=== PATIENT | female | born 1985 | race Caucasian/White ===

== ENCOUNTER 2020-01-29 19:15 | Emergency (ER) | payer OTHER, MEDICAID, SELFPAY ==
[2020-01-29 19:20] VITALS: BP 115/58; PULSE 92; RESP 14; TEMP 37.2; O2SAT 99; BMI 24.2
--- NOTE | 2020-01-29 19:57 | ED.WOUNDLAC ---
HPI - Wound/Laceration <PETER Cabezas - Last Filed: 01/29/20 21:01> General Chief Complaint: Wound/Laceration Stated Complaint: laceration to wrist, accidental Time Seen by Provider: 01/29/20 19:22 Source: patient Mode of arrival: Ambulatory Limitations: no limitations History of Present Illness HPI narrative: 34yo female presents to the ED for a laceration to her right wrist. She states she was painting, she went to use a screwdriver to open a piece of painting supply, the screwdriver slipped and she cut her wrist on the metal casing of the other eating supplies. She states this happened a few hours ago, unsure last Tdap. She denies any fevers, chills, nausea, vomiting, diarrhea, difficulty moving her wrist, other injuries, or any other concerns. Patient reports allergy to Toradol, states that she can take ibuprofen. Related Data Previous Rx's Medication Instructions Recorded ibuprofen 800 mg PO Q8H PRN #14 tab 01/29/20 Allergies Allergy/AdvReac Type Severity Reaction Status Date / Time ketorolac [From Toradol] Allergy Verified 01/29/20 19:25 Review of Systems <PETER Cabezas - Last Filed: 01/29/20 21:01> Review of Systems Narrative: REVIEW OF SYSTEMS: GENERAL: Denies fever or chills. HENT: Denies head trauma. EYE: Denies double vision or vision loss. CARDIOVASCULAR: Denies syncope. MUSCULOSKELETAL: Denies weakness, or deformities. INTEGUMENTARY: Complains of right wrist laceration, see HPI. NEURO: Denies numbness or tingling. Patient History <PETER Cabezas - Last Filed: 01/29/20 21:01> Medical History No significant medical problems (Acute) Social History Smoking Status: Current every day smoker Smoking Status: Current every day smoker alcohol intake frequency: holidays/special occasions only Substance Use Type: does not use Exam <PETER Cabezas - Last Filed: 01/29/20 21:01> Initial Vital Signs Initial Vital Signs: Vital Signs Temperature 98.9 F 01/29/20 19:20 Pulse Rate 92 H 01/29/20 19:20 Respiratory Rate 14 01/29/20 19:20 Blood Pressure 115/58 L 01/29/20 19:20 Pulse Oximetry 99 01/29/20 19:20 PHYSICAL EXAMINATION: GENERAL: Well groomed, alert, and cooperative. Answers questions promptly and appropriately. Vital signs noted. HENT: Normocephalic, atraumatic. RESPIRATORY: Normal respiratory rate, trachea midline, airway patent. No stridor, nasal flaring or accessory muscle use. MUSCULOSKELETAL: Full range of motion of right wrist against resistance. Normal gait and coordination. Equal tone and mass bilaterally. EXTREMITIES: CMS intact. Moves all extremities. SKIN: Warm, dry, soft, appropriate color for ethnicity. A 4 cm laceration noted to right wrist, subcu tissue visualized, tendon visualize, intact, smooth glide visualized. Bleeding controlled with pressure. Sutures applied after irrigation with normal saline. See procedure note. NEURO: Alert and Oriented X 3. Good coordination. PSYCH: Appropriate affect and mood. <Bright Coker DO - Last Filed: 01/30/20 00:49> Initial Vital Signs Initial Vital Signs: Vital Signs Temperature 98.9 F 01/29/20 19:20 Pulse Rate 92 H 01/29/20 19:20 Respiratory Rate 14 01/29/20 19:20 Blood Pressure 115/58 L 01/29/20 19:20 Pulse Oximetry 99 01/29/20 19:20 Procedures <PETER Cabezas - Last Filed: 01/29/20 21:01> Laceration Repair Laceration 1: Site: upper extremity Size (cm): 4 Description: linear Depth: simple, single layer Local Anesthetic: lidocaine 1% and with epi Amount of anesthesia used (mL): 9 Pre-repair: wound explored and irrigated extensively Skin layer closed with: nylon Size (cm): 4-0 Number of sutures: 8 Technique: simple, interrupted Course <PETER Cabezas - Last Filed: 01/29/20 21:01> Course Course Narrative: Wound irrigated extensively, Tylenol and ibuprofen given for pain. Orders Ordered: Discontinued Medications Acetaminophen (Tylenol) 975 mg PO NOW ONE Stop: 01/29/20 19:51 Last Admin: 01/29/20 20:26 Dose: 975 mg Documented by: MMERKEL Bacitracin (Bacitracin) 1 applic TOP NOW ONE Stop: 01/29/20 20:53 Last Admin: 01/29/20 21:03 Dose: 1 applic Documented by: LELA Diphtheria/Tetanus/Acell Pertussis (Adacel) 0.5 ml IM .ONCE ONE Stop: 01/29/20 21:09 Last Admin: 01/29/20 21:11 Dose: 0.5 ml Documented by: LELA Ibuprofen (Advil) 800 mg PO NOW ONE Stop: 01/29/20 19:51 Last Admin: 01/29/20 20:26 Dose: 800 mg Documented by: LELA Lidocaine/Epinephrine (Xylocaine 1% W/Epi) 4 ml INJ INTRA-OP ONE Stop: 01/29/20 19:52 Last Admin: 01/29/20 20:27 Dose: 4 ml Documented by: LELA Vital Signs Vital signs: Vital Signs - 8 hr 01/29/20 19:20 01/29/20 21:02 Temperature 98.9 F Pulse Rate 92 H 83 Respiratory Rate 14 Blood Pressure 115/58 L 99/57 L Pulse Oximetry 99 98 <Bright Coker, DO - Last Filed: 01/30/20 00:49> Orders Ordered: Discontinued Medications Acetaminophen (Tylenol) 975 mg PO NOW ONE Stop: 01/29/20 19:51 Last Admin: 01/29/20 20:26 Dose: 975 mg Documented by: LELA Bacitracin (Bacitracin) 1 applic TOP NOW ONE Stop: 01/29/20 20:53 Last Admin: 01/29/20 21:03 Dose: 1 applic Documented by: LELA Diphtheria/Tetanus/Acell Pertussis (Adacel) 0.5 ml IM .ONCE ONE Stop: 01/29/20 21:09 Last Admin: 01/29/20 21:11 Dose: 0.5 ml Documented by: LELA Ibuprofen (Advil) 800 mg PO NOW ONE Stop: 01/29/20 19:51 Last Admin: 01/29/20 20:26 Dose: 800 mg Documented by: LELA Lidocaine/Epinephrine (Xylocaine 1% W/Epi) 4 ml INJ INTRA-OP ONE Stop: 01/29/20 19:52 Last Admin: 01/29/20 20:27 Dose: 4 ml Documented by: LELA Vital Signs Vital signs: Vital Signs - 8 hr 01/29/20 19:20 01/29/20 21:02 Temperature 98.9 F Pulse Rate 92 H 83 Respiratory Rate 14 Blood Pressure 115/58 L 99/57 L Pulse Oximetry 99 98 [facility] - Wound/Laceration <Teressa PachecoPETER - Last Filed: 01/29/20 21:01> Medical Records Attestation: I reviewed the patient's medical records. Lab Data Attestation: I reviewed the patient's lab results. MDM Narrative Medical decision making narrative: Simple laceration repair, no concern for infection or tendon involvement due to full range of motion of wrist, and visualized intact tendon movement. Patient was counseled extensively about suture removal and to watch for signs of infection. Less concern for foreign body given lack of any missing pieces of the tin box as she cut herself on. Return precautions given for new or worsening symptoms. Patient agreed to plan of care verbalized understanding. Discharge Plan Departure Patient Disposition: Home Clinical Impression: Laceration Discharge Date/Time: 01/29/20 21:05 Instructions: DI for Laceration Repair Activity Restrictions/Additional Instructions: Thank you for entrusting me with your care today. As discussed, 8 sutures were applied, these can be removed in 10-14 days. Leave the bandage in place for the next 24 hours, after that you may remove the bandage in wash the area gently with soap and water. Apply bacitracin to the area 1 to 2 times a day. No foreign bodies were found in your wound today. While there is low-risk for infection at this time, retained foreign bodies and infection are always possible with any cut or break in the skin. Please monitor the wound closely and be re-evaluated immediately if you develop any signs of infection such as pus, increasing redness, increasing pain, fevers, or any other concerns. Prescriptions: New ibuprofen 800 mg tablet 800 mg PO Q8H PRN (Reason: pain) Qty: 14 RF: 0 <Bright Coker DO - Last Filed: 01/30/20 00:49> Cosign ED Attending Cosignature Attestation: I was immediately available in the department for consultation. This documentation has been reviewed and I agree with assessment and plan. Supervised by Bright Coker DO
[2020-01-29] MEDS: IBUPROFEN 400 MG TABLET 800 MG PO (20:26)
[2020-01-29] MEDS: ACETAMINOPHEN 325 MG TABLET 975 MG PO (20:26)
[2020-01-29] MEDS: LIDOCAINE 1% W/EPI 4 ML INJ (20:27)
[2020-01-29 21:02] VITALS: BP 99/57; PULSE 83; O2SAT 98
[2020-01-29] MEDS: BACITRACIN OINT 0.9 GM PCKT 1 APPLIC TOP (21:03)
[2020-01-29] MEDS: TET,DIPH,PERTUSS(ACELL),VAC/PF 0.5 ML SYRINGE IM (21:11)
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
== END 2020-01-29 21:05 | disposition home or self-care (01) ==
PROVIDERS: Emergency Provider Nurse Practitioner
DX: S61.511A Laceration without foreign body of right wrist, initial encounter (principal); W45.8XXA Other foreign body or object entering through skin, initial encounter; Z23 Encounter for immunization
CPT/HCPCS: 12002; 90471; 99283; 90715

== ENCOUNTER 2023-08-04 15:00 | Emergency (ER) | payer SELFPAY ==
[2023-08-04 15:06] VITALS: BP 99/56; PULSE 104; RESP 18; TEMP 36.9; O2SAT 100; BMI 27.4
[2023-08-04] MEDS: ACETAMINOPHEN 325 MG TABLET 975 MG PO (15:25)
[2023-08-04] MEDS: ONDANSETRON 4 MG/2 ML INJ IV (15:26)
--- NOTE | 2023-08-04 15:50 | DI.CT.S_ITS ---
PROCEDURE: CT KIDNEY URETER BLADDER (KUB) INDICATIONS: R/O Kidney Stones TECHNIQUE: Axial sections were acquired from the lung bases to the pubic symphysis. Coronal and sagittal reformats were performed. For radiation dose reduction, the following was used: automated exposure control, adjustment of mA and/or kV according to patient size. COMPARISON: None. FINDINGS: Image quality: Diagnostic. Lower Chest: No significant findings. URINARY: Right Kidney: No stones or hydronephrosis. Right Ureter: No hydroureter. Left Kidney: Punctate left renal calculus. There is minimal appearance of prominence of the left renal collecting system. Left Ureter: No hydroureter. Bladder: Normal wall thickness. No stones. ABDOMEN: Liver: No contour-deforming solid mass. Gallbladder: No radiopaque gallstones or wall thickening. Biliary ducts: No biliary dilation. Pancreas: No ductal dilation. Spleen: Size is within normal limits. Adrenal Glands: No adrenal nodules. Stomach and Bowel: Normal colonic caliber, without significant wall thickening. Peritoneum: No abnormal intraperitoneal fluid. No free air. Ventral Wall: No hernia. Abdominal Nodes: No enlarged retroperitoneal or mesenteric lymph nodes. Vessels: Aorta and inferior vena cava are normal in size. PELVIS: Pelvic Organs: Unremarkable. Pelvic Nodes: Unremarkable. Miscellaneous: No inguinal hernias are seen. Bones: Unremarkable. IMPRESSION: Minimal prominence of the left renal collecting system. This could represent a recently passed stone. Is overall nonspecific. Punctate non-obstructing left renal calculus. Mild to moderate colonic stool without obstruction. Dictated by: Jadyn Pittman M.D. on 08/04/2023 at 16:28 Approved by: Jadyn Pittman M.D. on 08/04/2023 at 16:29
[2023-08-04 16:19] LABS: Bacteria Urine Few (2-10); RBC Urine 0-1/HPF (0-5/HPF); Urine Volume 10mL (spun); WBC Urine 5-10/HPF (0-5/HPF)
[2023-08-04 16:20] LABS: Culture Indicated Urine Specimen Cultured; Squamous Epithelial Cell Urine 1-5 /HPF (0-5/HPF)
[2023-08-04 18:15] LABS: Add Manual Diff / Slide Review NO; Basophils Absolute Auto 0 /uL (0-100); Basophils Percent Auto 0.1 % (0-2); Eosinophils Absolute Auto 100 /uL (0-450); Eosinophils Percent Auto 0.5 % (2-4); Hematocrit 39.9 % (36-46); Hemoglobin 13.2 g/dL (12.0-16.0); Lymphocytes Absolute Auto 1100 /uL (1100-4500); Lymphocytes Percent Auto 6.2 % (25-40); Mean Corpuscular HGB Conc 33.2 % (30-36); Mean Corpuscular Volume 93.3 fL (80-100); Monocytes Absolute Auto 1600 /uL (0-900); Monocytes Percent Auto 8.9 % (3-14); Neutrophils Absolute Auto 14900 /uL (1500-7000); Neutrophils Percent Auto 84.3 % (50-75); Platelet Count 263 X10^3/uL (150-400); Red Blood Cell Count 4.28 X10^6/uL (4.0-5.2); Red Cell Distribution Width 13.3 % (11.6-14.8); White Blood Cell Count 17.7 X10^3/uL (4.5-11.0)
[2023-08-04 18:21] LABS: BUN Creatinine Ratio 10.1 (6-22); Blood Urea Nitrogen 8 mg/dL (7-17); Calcium 9.2 mg/dL (8.4-10.2); Carbon Dioxide 26 mmol/L (22-32); Chloride 102 mmol/L (98-107); Estimated Glomerular Filt Rate > 60 mL/min (>60); Glucose 110 mg/dL (70-100); HEMOLYSIS < 15 (0-50); Potassium 3.5 mmol/L (3.4-5.1); Sodium 136 mmol/L (137-145)
[2023-08-04 18:28] VITALS: BP 110/61; PULSE 88; RESP 18; O2SAT 100
--- NOTE | 2023-08-04 18:46 | PC.NURSE ---
Patient in [facility] demanding to know who her doctor is and when she will see him. Informed patient of the wait. Requesting tylenol for pain. I have been back here for over 30min and was told I would get pain meds and no one has given me anything Reassured patient RN would speak to provider about pain meds.
--- NOTE | 2023-08-04 19:02 | ED_ITS ---
HPI - General Adult General Chief complaint: Urogenital-Female Stated complaint: septic kidney/pain increasing T-0 Time Seen by Provider: 08/04/23 18:00 Source: patient Mode of arrival: Ambulatory History of Present Illness HPI narrative: Patient is a 37-year-old female who is here for evaluation of left-sided flank and back pain that began approximately 4 days ago. She states that it does radiate around to the front on the left. Worse with movement. Also states she is having some blood in her urine specifically with wiping. She presented to an outside emergency department this morning. I did have those notes to review. She had a negative test. Labs were relatively unremarkable except for a leukocytosis of 12. Had a urinalysis that was consistent with a urinary tract infection. According to those notes the patient left Against Medical Advice. The provider did send in a prescription for Cipro. She presents to this emergency department with very similar symptoms. Related Data Previous Rx's Medication Instructions Recorded ibuprofen 800 mg tablet 800 mg PO Q8H PRN pain #14 tabs 01/29/20 cephalexin 500 mg capsule 500 mg PO BID 7 days #14 caps 08/04/23 Allergies Allergy/AdvReac Type Severity Reaction Status Date / Time ketorolac [From Toradol] Allergy Verified 01/29/20 19:25 Review of Systems Review of Systems ROS Unobtainable: All systems reviewed & are unremarkable except as noted in HPI and below Patient History Medical History No significant medical problems Social History Smoking Status: Current every day smoker Smoking Status: Current every day smoker tobacco type: cigarettes alcohol intake frequency: holidays/special occasions only Substance Use Type: crack/cocaine and methamphetamine Exam Initial Vital Signs Initial Vital Signs: Vital Signs Temperature 98.4 F 08/04/23 15:06 Pulse Rate 104 H 08/04/23 15:06 Respiratory Rate 18 08/04/23 15:06 Blood Pressure 99/56 L 08/04/23 15:06 Pulse Oximetry 100 08/04/23 15:06 Oxygen Delivery Method Room Air 08/04/23 15:06 Const General: cooperative and No ill appearing HENMT Head: normal to inspection and normocephalic Resp Effort & Inspection: normal respiratory effort Auscultation: clear to auscultation bilaterally Cardio Rate: regular rate Rhythm: regular rhythm GI Inspection: non-distended Back/Spine/Pelvis Back: CVA tenderness left Skin General: no rashes or lesions noted Neuro General: patient alert and patient awake Extrem General: capillary refill normal Course Orders Ordered: Discontinued Medications Acetaminophen (Acetaminophen 325 Mg Tablet) 975 mg PO NOW ONE Stop: 08/04/23 15:19 Last Admin: 08/04/23 15:25 Dose: 975 mg Documented By: ES Cephalexin HCl (Cephalexin 250 Mg Capsule) 500 mg PO NOW ONE Stop: 08/04/23 19:04 Last Admin: 08/04/23 19:11 Dose: 500 mg Documented By: GAURI Ondansetron HCl (Ondansetron 4 Mg Odt) 4 mg SL NOW PRN PRN Reason: Nausea And Vomiting Ondansetron HCl (Ondansetron 4 Mg/2 Ml Inj) 4 mg IV NOW PRN PRN Reason: Nausea And Vomiting Last Admin: 08/04/23 15:26 Dose: 4 mg Documented By: VALERY Vital Signs Vital signs: Vital Signs - 8 hr 08/04/23 18:28 Pulse Rate 88 Respiratory Rate 18 Blood Pressure 110/61 Pulse Oximetry 100 Oxygen Delivery Method Room Air Medical Decision Making Medical Records Medical records reviewed: Yes I reviewed the patient's medical records. Lab Data Lab results reviewed: Yes I reviewed the patient's lab results. 08/04/23 15:30 08/04/23 15:30 Labs: Lab Results 08/04/23 08/04/23 Range/Units 15:30 15:42 WBC 17.7 H (4.5-11.0) X10^3/uL RBC 4.28 (4.0-5.2) X10^6/uL Hgb 13.2 (12.0-16.0) g/dL Hct 39.9 (36-46) % MCV 93.3 (80-100) fL MCH 31.0 (26-34) PG MCHC 33.2 (30-36) % RDW 13.3 (11.6-14.8) % Plt Count 263 (150-400) X10^3/uL Neut % (Auto) 84.3 H (50-75) % Lymph % (Auto) 6.2 L (25-40) % [place] % (Auto) 8.9 (3-14) % Eos % (Auto) 0.5 L (2-4) % Baso % (Auto) 0.1 (0-2) % Neut # (Auto) 43554 H (6723-4500) /uL Lymph # (Auto) 1100 (9844-9799) /uL [place] # (Auto) 1600 H (0-900) /uL Eos # (Auto) 100 (0-450) /uL Baso # (Auto) 0 (0-100) /uL Sodium 136 L (137-145) mmol/L Potassium 3.5 (3.4-5.1) mmol/L Chloride 102 (98-107) mmol/L Carbon Dioxide 26 (22-32) mmol/L BUN 8 (7-17) mg/dL Creatinine 0.79 (0.52-1.04) mg/dL Estimated GFR > 60 (>60) mL/min BUN/Creatinine Ratio 10.1 (6-22) Glucose 110 H (70-100) mg/dL Calcium 9.2 (8.4-10.2) mg/dL Urine RBC 0-1/hpf (0-5/HPF) Urine WBC 5-10/hpf H (0-5/HPF) Ur Squamous Epith Cells 1-5 /hpf (0-5/HPF) Urine Bacteria Few (2-10) H (None) Ur Culture Indicated? Specimen cultured Vol Urine Centrifuged 10ml (spun) Point of Care Testing Test Results Negative Urine Dip Bedside Urine Glucose Negative Bedside Urine Bilirubin - Negative Bedside Urine Ketone - Negative Urine Specific [place]eder 1.015 Bedside Urine Occult Blood +++ Bedside Urine pH 6.0 Bedside Urine Protein + 30 Bedside Urine Urobilinogen - Negative Bedside Urine Nitrite - Negative Bedside Urine Leukocytes - Negative Esterase Point of care testing: Point of Care Testing Test Results Negative Urine Dip Bedside Urine Glucose Negative Bedside Urine Bilirubin - Negative Bedside Urine Ketone - Negative Urine Specific [place]eder 1.015 Bedside Urine Occult Blood +++ Bedside Urine pH 6.0 Bedside Urine Protein + 30 Bedside Urine Urobilinogen - Negative Bedside Urine Nitrite - Negative Bedside Urine Leukocytes - Negative Esterase Imaging Data CT scan - abdomen/pelvis: Radiologist's Impression: PROCEDURE: CT KIDNEY URETER BLADDER (KUB) INDICATIONS: R/O Kidney Stones TECHNIQUE: Axial sections were acquired from the lung bases to the pubic symphysis. Coronal and sagittal reformats were performed. For radiation dose reduction, the following was used: automated exposure control, adjustment of mA and/or kV according to patient size. COMPARISON: None. FINDINGS: Image quality: Diagnostic. Lower Chest: No significant findings. URINARY: Right Kidney: No stones or hydronephrosis. Right Ureter: No hydroureter. Left Kidney: Punctate left renal calculus. There is minimal appearance of prominence of the left renal collecting system. Left Ureter: No hydroureter. Bladder: Normal wall thickness. No stones. ABDOMEN: Liver: No contour-deforming solid mass. Gallbladder: No radiopaque gallstones or wall thickening. Biliary ducts: No biliary dilation. Pancreas: No ductal dilation. Spleen: Size is within normal limits. Adrenal Glands: No adrenal nodules. Stomach and Bowel: Normal colonic caliber, without significant wall thickening. Peritoneum: No abnormal intraperitoneal fluid. No free air. Ventral Wall: No hernia. Abdominal Nodes: No enlarged retroperitoneal or mesenteric lymph nodes. Vessels: Aorta and inferior vena cava are normal in size. PELVIS: Pelvic Organs: Unremarkable. Pelvic Nodes: Unremarkable. Miscellaneous: No inguinal hernias are seen. Bones: Unremarkable. IMPRESSION: Minimal prominence of the left renal collecting system. This could represent a recently passed stone. Is overall nonspecific. Punctate non-obstructing left renal calculus. Mild to moderate colonic stool without obstruction. MDM Narrative Medical decision making narrative: Patient has a white count of 17 however has normal kidney function. CT scan shows no signs of kidney stone or ureteral stone. Patient is afebrile. Urinalysis shows findings consistent with a UTI. She was tolerating oral intake. Patient is not tachycardic. Not tachypneic. Not hypotensive. Tolerated a dose of antibiotics here in the ER. I received the record from the prior ED visit after my evaluation of the patient and after she was discharged. I did not know that they had called in a prescription for antibiotics to the patient however we talked about the antibiotics that I prescribed to her she should take them as directed. No indication for admission to the hospital. Patient was discharged with strict return precautions. She expressed understanding agreement. Discharge Plan Departure Patient Disposition: Home Clinical Impression: Urinary tract infection, Hematuria Instructions: DI for Urinary Tract Infection (UTI), DI for Hematuria Activity Restrictions/Additional Instructions: I do recommend that you take the antibiotics as directed. Be sure that you were increasing your fluid intake. A urine culture was pending at the time of your discharge and we will contact you if we need to change the antibiotics based on this. Return to the emergency department for new or worsening symptoms. Prescriptions: New cephalexin 500 mg capsule 500 mg PO BID 7 Days Qty: 14 0RF No Action ibuprofen 800 mg tablet 800 mg PO Q8H PRN (Reason: pain) Qty: 14 0RF Referrals: *Temp,ED* [Primary Care Provider] - Stand Alone Forms: Patient Portal/API
[2023-08-04] MEDS: cephALEXin 250 MG CAPSULE 500 MG PO (19:11)
== END 2023-08-04 19:18 | disposition home or self-care (01) ==
PROVIDERS: Emergency Medicine; Emergency Provider Emergency Medicine
DX: N39.0 Urinary tract infection, site not specified (principal); R31.9 Hematuria, unspecified
CPT/HCPCS: 74176; 80048; 81003; 81015; 81025; 85025; 87086; 87147; 96374; 99284; J2405